=== PATIENT | female | born 1940 | race Asian ===

== ENCOUNTER 2018-09-18 07:51 | Day surgery (SDC) | payer MEDICARE, MEDICAID ==
[~2018-09-18] VITALS: Ht 142.2 cm; Wt 77.3 kg
[2018-09-18] MEDS ORDERED: RINGERS SOLUTION,LACTATED 500 ML IV ONE ×2 (08:15→08:20)
[2018-09-18] MEDS ORDERED: ACETAMINOPHEN 325 MG TABLET PO PRN (08:15)
[2018-09-18] MEDS: KETOROLAC TROMETHAMINE 0.5% 5 ML OPHTHALMIC SOLUTION OD SCH ×3 (08:18→08:29)
[2018-09-18] MEDS: CYCLOPENTOLATE HCL 2% 2 ML OPHTHALMIC SOLUTION OD SCH ×3 (08:18→08:29)
[2018-09-18] MEDS: MOXIFLOXACIN HCL 0.5% 3 ML OPHTHALMIC SOLUTION OD SCH ×3 (08:18→08:29)
[2018-09-18] MEDS: PHENYLEPHRINE HCL 2.5% 2 ML OPHTHALMIC SOLUTION OD SCH ×3 (08:18→08:29)
[2018-09-18] MEDS: TETRACAINE HCL/PF 0.5% 4 ML OPHTHALMIC SOLUTION OD SCH ×3 (08:18→08:29)
[2018-09-18] MEDS ORDERED: SODIUM CHLORIDE 0.9% 500 ML IV ONE ×2 (08:30→08:37)
[2018-09-18] MEDS ORDERED: MOXIFLOXACIN HCL 0.5% 3 ML OPHTHALMIC SOLUTION ONE (08:35)
[2018-09-18] MEDS ORDERED: KETOROLAC TROMETHAMINE 0.5% 5 ML OPHTHALMIC SOLUTION ONE (08:36)
[2018-09-18] MEDS ORDERED: PHENYLEPHRINE HCL 2.5% 2 ML OPHTHALMIC SOLUTION ONE (08:36)
[2018-09-18] MEDS ORDERED: TIMOLOL MALEATE 0.5% 5 ML OPHTHALMIC SOLUTION ONE (08:36)
[2018-09-18] MEDS ORDERED: CYCLOPENTOLATE HCL 2% 2 ML OPHTHALMIC SOLUTION ONE (08:36)
[2018-09-18] MEDS ORDERED: FentaNYL CITRATE-PF 100 MCG/2 ML VIAL IVP ONE (12:00)
[2018-09-18] MEDS ORDERED: MIDAZOLAM HCL 2 MG/2 ML VIAL IVP ONE (12:00)
== END 2018-09-18 09:55 | disposition home or self-care (01) ==
LOC: SURGERY 07:51
PROVIDERS: ATTEND Ophthalmology
DX: H26.8 Other specified cataract (principal); I10 Essential (primary) hypertension; Z79.82 Long term (current) use of aspirin; Z79.899 Other long term (current) drug therapy
CPT/HCPCS: 66984; 93005; C1780; J2250; J3010; J7040; J7120

== ENCOUNTER 2018-10-23 05:24 | Day surgery (SDC) | payer MEDICARE, MEDICAID ==
[~2018-10-23] VITALS: Ht 147.3 cm; Wt 76.8 kg
[~2018-10-23 05:24] MED LIST: AMLO5TAB9 PO; ASPI81 PO; ATOR20TA86 PO; AZIL1TAB3 PO; CALC-1038 PO; ISOS10TA8 PO; RANO500T3 PO
[2018-10-23] MEDS ORDERED: TETRACAINE HCL/PF 0.5% 4 ML OPHTHALMIC SOLUTION ONE (05:46)
[2018-10-23] MEDS ORDERED: RINGERS SOLUTION,LACTATED 500 ML IV ONE ×2 (05:46→06:00)
[2018-10-23] MEDS ORDERED: DICLOFENAC SODIUM 0.1% 2.5 ML OPHTHALMIC SOLUTION ONE (05:46)
[2018-10-23] MEDS ORDERED: MOXIFLOXACIN HCL 0.5% 3 ML OPHTHALMIC SOLUTION ONE ×2 (05:47→06:18)
[2018-10-23] MEDS ORDERED: TROPICAMIDE 1% 2 ML OPHTHALMIC SOLUTION ONE (05:47)
[2018-10-23] MEDS ORDERED: CYCLOPENTOLATE HCL 1% 2 ML OPHTHALMIC SOLUTION ONE (05:48)
[2018-10-23] MEDS ORDERED: PHENYLEPHRINE HCL 2.5% 2 ML OPHTHALMIC SOLUTION ONE (05:48)
[2018-10-23] MEDS ORDERED: KETOROLAC TROMETHAMINE 0.5% 5 ML OPHTHALMIC SOLUTION ONE (06:18)
[2018-10-23] MEDS: TROPICAMIDE 1% 2 ML OPHTHALMIC SOLUTION OS SCH ×3 (06:27→06:39)
[2018-10-23] MEDS: CYCLOPENTOLATE HCL 1% 2 ML OPHTHALMIC SOLUTION OS SCH ×3 (06:27→06:39)
[2018-10-23] MEDS: KETOROLAC TROMETHAMINE 0.5% 5 ML OPHTHALMIC SOLUTION OS SCH ×3 (06:27→06:39)
[2018-10-23] MEDS: PHENYLEPHRINE HCL 2.5% 2 ML OPHTHALMIC SOLUTION OS SCH ×3 (06:27→06:39)
[2018-10-23] MEDS: MOXIFLOXACIN HCL 0.5% 3 ML OPHTHALMIC SOLUTION OS SCH ×3 (06:27→06:39)
[2018-10-23] MEDS ORDERED: ALPRAZolam 0.5 MG TABLET PO ONE (07:00)
[2018-10-23] MEDS ORDERED: TETRACAINE HCL/PF 0.5% 4 ML OPHTHALMIC SOLUTION OS ONE (07:00)
== END 2018-10-23 08:30 | disposition home or self-care (01) ==
LOC: SURGERY 05:24
PROVIDERS: ATTEND Ophthalmology
DX: H26.8 Other specified cataract (principal); I10 Essential (primary) hypertension; Z79.899 Other long term (current) drug therapy; Z90.710 Acquired absence of both cervix and uterus; Z98.41 Cataract extraction status, right eye; Z96.1 Presence of intraocular lens; Z98.890 Other specified postprocedural states
CPT/HCPCS: 66984; C1780; J7120